=== PATIENT | male | born 1980 | race Caucasian/White ===

== ENCOUNTER 2017-06-03 22:10 | Emergency (ER) | payer OTHER ==
[2017-06-03 22:17] VITALS: BP 124/69
--- NOTE | 2017-06-03 23:02 | EDM.PDOC ---
ED HPI GENERAL MEDICAL PROBLEM - General Chief Complaint: Neurological Problem Stated Complaint: SEIZURE Time Seen by Provider: 06/03/17 22:53 Source of Information: Reports: Patient History Limitations: Reports: No Limitations - History of Present Illness INITIAL COMMENTS - FREE TEXT/NARRATIVE: pt arrived fter having 2 seizures tonight. he did smoke some pot. He has never seizured in the past after using pot. He admits to forgeting his dilantin last nite and he may have forgotten some other times. He Has not been using a box where he sets up his pills. Onset: Today, Other ( He had 2 seizures this pm. ) Duration: Hour(s): Location: Reports: Head Associated Symptoms: Reports: Seizure, Other (pt had 2 back to back seizures. He has not been ill or doing any vomiting recently. ) right shoulder pain Pain Score (Numeric/FACES): 10 - Related Data Allergies Allergy/AdvReac Type Severity Reaction Status Date / Time red food dye Allergy Other Uncoded 06/03/17 22:14 Home Meds: Home Meds Phenytoin Sodium Extended [Dilantin] 400 mg PO BEDTIME 06/03/17 [History] Past Medical History Musculoskeletal History: Reports: Neck Pain, Chronic, Other (See Below) Other Musculoskeletal History: ruptured disc C5 and C6. torn rotator cuff Neurological History: Reports: Concussion, Migraines, Seizure Psychiatric History: Reports: Depression, PTSD - Infectious Disease History Infectious Disease History: Reports: Chicken Pox Social & Family History - Tobacco Use Smoking Status *Q: Light Tobacco Smoker Years of Tobacco use: 12 Packs/Tins Daily: 0.1 Used Tobacco, but Quit: No Second Hand Smoke Exposure: Yes - Caffeine Use Caffeine Use: Reports: Coffee, Soda - Recreational Drug Use Recreational Drug Use: Yes Drug Use in Last 12 Months: Yes Recreational Drug Type: Reports: Marijuana/Hashish Recreational Drug Use Frequency: Rarely Recreational Drug Last Use: 06/03/17 ED ROS GENERAL - Review of Systems Review Of Systems: See Below Constitutional: Reports: No Symptoms HEENT: Reports: No Symptoms Respiratory: Reports: No Symptoms Cardiovascular: Reports: No Symptoms Endocrine: Reports: No Symptoms GI/Abdominal: Reports: No Symptoms : Reports: No Symptoms Musculoskeletal: Reports: No Symptoms Skin: Reports: No Symptoms Neurological: Reports: Seizure, Other (pt had 2 back to back seizures. ) - Physical Exam Exam: See Below Text/Narrative:: Pt arrived with a history of 2 seizures tonight. He forgot to take his dilantin last nite. He did take it tonight. Exam Limited By: No Limitations General Appearance: Alert, Anxious, Other (pupils are equal and reactive. ) Ears: Normal TMs Nose: Normal Inspection Throat/Mouth: Normal Inspection Head Exam: Atraumatic Neck: Normal Inspection Respiratory/Chest: No Respiratory Distress Cardiovascular: Regular Rate, Rhythm GI/Abdominal: Soft, Non-Tender (Male) Exam: Deferred Rectal (Males) Exam: Deferred Neuro Exam (Abbreviated): Alert, Oriented, Normal Cognition Back Exam: Normal Inspection Extremities: Normal Inspection Psychiatric: Normal Affect Course - Vital Signs Last Recorded V/S: Last Vital Signs Temp 36.9 C 06/03/17 22:29 Pulse 83 06/03/17 22:29 Resp 16 06/03/17 22:29 BP 124/69 06/03/17 22:29 Pulse Ox 97 06/03/17 22:29 - Orders/Labs/Meds Labs: Laboratory Tests 06/03/17 06/03/17 06/03/17 Range/Units 22:55 22:55 22:55 WBC 12.1 H (4.5-11.0) K/uL RBC 4.94 (4.30-5.90) M/uL Hgb 14.8 (12.0-15.0) g/dL Hct 42.4 (40.0-54.0) % MCV 86 (80-98) fL MCH 30 (27-31) pg MCHC 35 (32-36) % Plt Count 225 (150-400) K/uL Neut % (Auto) 87 H (36-66) % Lymph % (Auto) 7 L (24-44) % [place] % (Auto) 5 (2-6) % Eos % (Auto) 0 L (2-4) % Baso % (Auto) 0 (0-1) % Sodium 140 (140-148) mmol/L Potassium 4.0 (3.6-5.2) mmol/L Chloride 103 (100-108) mmol/L Carbon Dioxide 27 (21-32) mmol/L Anion Gap 10.2 (5.0-14.0) mmol/L BUN 15 (7-18) mg/dL Creatinine 1.0 (0.8-1.3) mg/dL Est Cr Clr Drug Dosing 116.52 mL/min Estimated GFR (MDRD) > 60 (>60) Glucose 111 H (74-106) mg/dL Calcium 8.3 L (8.5-10.1) mg/dL Total Bilirubin 0.2 (0.2-1.0) mg/dL AST 37 (15-37) U/L ALT 85 H (12-78) U/L Alkaline Phosphatase 84 (46-116) U/L Total Protein 6.5 (6.4-8.2) g/dL Albumin 3.7 (3.4-5.0) g/dL Globulin 2.8 (2.3-3.5) g/dL Albumin/Globulin Ratio 1.3 (1.2-2.2) Urine Color Urine Appearance Urine pH (4.5-8.0) Ur Specific [place] (1.008-1.030) Urine Protein (NEGATIVE) mg/dL Urine Glucose (UA) (NEGATIVE) mg/dL Urine Ketones (NEGATIVE) mg/dL Urine Occult Blood (NEGATIVE) Urine Nitrite (NEGAITVE) Urine Bilirubin (NEGATIVE) Urine Urobilinogen (NORMAL) mg/dL Ur Leukocyte Esterase (NEGATIVE) Urine RBC (0-5) Urine WBC (0-5) Ur Epithelial Cells Amorphous Sediment Urine Bacteria Urine Mucus Urine Opiates Screen (NEGATIVE) Ur Oxycodone Screen (NEGATIVE) Urine Methadone Screen (NEGATIVE) Ur Propoxyphene Screen (NEGATIVE) Ur Barbiturates Screen (NEGATIVE) Phenytoin 3.6 L (10.0-20.0) ug/mL Ur Tricyclics Screen (NEGATIVE) Ur Phencyclidine Scrn (NEGATIVE) Ur Amphetamine Screen (NEGATIVE) U Methamphetamines Scrn (NEGATIVE) Urine MDMA Screen (NEGATIVE) U Benzodiazepines Scrn (NEGATIVE) U Cocaine Metab Screen (NEGATIVE) U Marijuana (THC) Screen (NEGATIVE) 06/03/17 06/03/17 Range/Units 23:08 23:08 WBC (4.5-11.0) K/uL RBC (4.30-5.90) M/uL Hgb (12.0-15.0) g/dL Hct (40.0-54.0) % MCV (80-98) fL MCH (27-31) pg MCHC (32-36) % Plt Count (150-400) K/uL Neut % (Auto) (36-66) % Lymph % (Auto) (24-44) % [place] % (Auto) (2-6) % Eos % (Auto) (2-4) % Baso % (Auto) (0-1) % Sodium (140-148) mmol/L Potassium (3.6-5.2) mmol/L Chloride (100-108) mmol/L Carbon Dioxide (21-32) mmol/L Anion Gap (5.0-14.0) mmol/L BUN (7-18) mg/dL Creatinine (0.8-1.3) mg/dL Est Cr Clr Drug Dosing mL/min Estimated GFR (MDRD) (>60) Glucose (74-106) mg/dL Calcium (8.5-10.1) mg/dL Total Bilirubin (0.2-1.0) mg/dL AST (15-37) U/L ALT (12-78) U/L Alkaline Phosphatase (46-116) U/L Total Protein (6.4-8.2) g/dL Albumin (3.4-5.0) g/dL Globulin (2.3-3.5) g/dL Albumin/Globulin Ratio (1.2-2.2) Urine Color Yellow Urine Appearance Clear Urine pH 5.0 (4.5-8.0) Ur Specific [place] 1.025 (1.008-1.030) Urine Protein Negative (NEGATIVE) mg/dL Urine Glucose (UA) Normal (NEGATIVE) mg/dL Urine Ketones Negative (NEGATIVE) mg/dL Urine Occult Blood Negative (NEGATIVE) Urine Nitrite Negative (NEGAITVE) Urine Bilirubin Negative (NEGATIVE) Urine Urobilinogen Normal (NORMAL) mg/dL Ur Leukocyte Esterase Negative (NEGATIVE) Urine RBC 0-5 (0-5) Urine WBC 5-10 H (0-5) Ur Epithelial Cells Rare Amorphous Sediment Not seen Urine Bacteria Moderate Urine Mucus Not seen Urine Opiates Screen Negative (NEGATIVE) Ur Oxycodone Screen Negative (NEGATIVE) Urine Methadone Screen Negative (NEGATIVE) Ur Propoxyphene Screen Negative (NEGATIVE) Ur Barbiturates Screen Positive H (NEGATIVE) Phenytoin (10.0-20.0) ug/mL Ur Tricyclics Screen Negative (NEGATIVE) Ur Phencyclidine Scrn Negative (NEGATIVE) Ur Amphetamine Screen Negative (NEGATIVE) U Methamphetamines Scrn Negative (NEGATIVE) Urine MDMA Screen Negative (NEGATIVE) U Benzodiazepines Scrn Negative (NEGATIVE) U Cocaine Metab Screen Negative (NEGATIVE) U Marijuana (THC) Screen Positive H (NEGATIVE) Meds: Medications Discontinued Medications Generic Name Dose Route Start Last Admin Trade Name Freq PRN Reason Stop Dose Admin Fosphenytoin Sodium 500 mg.pe/ 60 mls @ 150 mls/hr 06/03/17 23:24 06/04/17 00 :08 Sodium Chloride IV 06/03/17 23:47 150 mls/hr NOW ONE Administration Sodium Chloride 1,000 mls @ 999 mls/hr 06/03/17 23:30 06/04/17 00:08 Normal Saline IV 999 mls/hr ASDIRECTED ZACH Administration Ketorolac Tromethamine 30 mg 06/03/17 23:28 06/04/17 00:04 Toradol IVPUSH 06/03/17 23:29 30 mg ONETIME ONE Administration Sodium Chloride 10 ml 06/03/17 23:24 06/04/17 00:07 Saline Flush FLUSH 10 ml ASDIRECTED PRN Administration Keep Vein Open - Re-Assessments/Exams Free Text/Narrative Re-Assessment/Exam: 06/03/17 23:50 pt has normal labs. His dilantin level is very low. He mmay have skipped the med several times. He had a drug screen that was positive for [place]. He admits he could have skepped the med several times. He will be given cerebyx iv. 06/04/17 00:08 xray of his shoulder was obtained which did not show any fractures, He will ice the shoulder and use motrin 600mg tid for pain. Departure - Departure Time of Disposition: 22:30 Disposition: Home, Self-Care 01 Condition: Fair Clinical Impression: Contusion of right shoulder, Dilantin level too low, Increasing frequency of seizure activity - Discharge Information Instructions: Shoulder Pain, Phenytoin capsules and extended-release capsules, Seizure, Adult, [id number], Phenytoin Toxicity Referrals: PCP,None [Primary Care Provider] - Forms: ED Department Discharge Care Plan Goals: use dilantin 400 regularly, suggest setting them upin a med box, motrin 600mg tid for shoulder pain, ice the shoulder. tylenol 3 1 tab q6h prn for pain. appt with usual physian in 1 week for a repeat dilantin level. r
[2017-06-03] MEDS ORDERED: Fosphenytoin 500 MG.PE in Sodium Chloride 0.9% 50 ML IV ONE (23:24)
[2017-06-03] MEDS ORDERED: Sodium Chloride 0.9% 10 ML Syringe FLUSH PRN (23:24)
[2017-06-03] MEDS ORDERED: Ketorolac 30 MG/ML SDV IVPUSH ONE (23:28)
[2017-06-03] MEDS ORDERED: Sodium Chloride 0.9% 1,000 ML IV SCH (23:30)
--- NOTE | 2017-06-07 08:54 | CR ---
Shoulder Comp Rt INDICATION: contusion to rt shoulder. COMPARISON: None FINDINGS: 3 views. Probable old Sachs fracture. Nothing acute seen. IMPRESSION: Presumed chronic changes. If needed, CT could be performed for further evaluation.
== END 2017-06-04 01:35 | disposition home or self-care (01) ==
LOC: JP.ED 22:10
DX: R56.9 Unspecified convulsions (principal); R89.2 Abnormal level of other drugs, medicaments and biological substances in specimens from other organs, systems and tissues; S40.011A Contusion of right shoulder, initial encounter; F17.210 Nicotine dependence, cigarettes, uncomplicated; X58.XXXA Exposure to other specified factors, initial encounter; Z91.048 Other nonmedicinal substance allergy status
CPT/HCPCS: 36415; 73030; 80053; 80185; 80305; 81001; 85025; 96361; 96365; 96375; 99284; J1885; J7040; J7050; Q2009